=== PATIENT | female | born 1925 | race Caucasian/White ===

== ENCOUNTER → 2016-05-26 | Outpatient (CLI) | payer MEDICARE, BC ==
--- NOTE | 2016-05-26 12:17 | CT ---
EXAMINATION TYPE: CT sinus wo con DATE OF EXAM: 05/26/2016 12:04 PM COMPARISON: NONE HISTORY: Patient complains of chronic cough and post nasal drip. CT DLP: [address] of the paranasal sinuses was performed in the axial and coronal planes. Bone and soft tissue settings are submitted. The paranasal sinuses demonstrate normal aeration and development. The paranasal sinuses are free of mucosal thickening or air fluid level. The osteal meatal units are patent bilaterally. Mild nasal septal deviation from left to right. No bony destructive changes are seen within the field of view. IMPRESSION: Mild nasal septal deviation from left to right. Otherwise unremarkable examination.
== END | disposition home or self-care (01) ==
LOC: RADCTMAIN 11:28
PROVIDERS: ATTEND Internal Medicine Critical Care Medicine
DX: J34.2 Deviated nasal septum (principal); R05 Cough
CPT/HCPCS: 70486

== ENCOUNTER 2016-10-27 13:15 | Emergency (ER) | payer MEDICARE, BC ==
--- NOTE | 2016-10-27 13:45 | ED ---
General Adult HPI - General Chief complaint: Head Injury Stated complaint: bumped head x 1 week Time Seen by Provider: 10/27/16 13:22 Source: patient, family, RN notes reviewed Mode of arrival: ambulatory Limitations: no limitations - History of Present Illness Initial comments: Chief complaint and history of present illness this 89-year-old female here with her daughter. The patient reports that she tripped last week falling forward hitting her face against the wooden part of a sofa. At the time she had a short episode of epistaxis. Daughter reports there was no loss of consciousness, no nausea no vomiting, no seizure activity at time. Patient comes in today because of persistent discomfort in the area of her forehead and bridge of the nose. The patient takes aspirin every other day. - Related Data Home Medications Medication Instructions Recorded Confirmed Losartan Potassium [Cozaar] 100 mg PO DAILY 11/28/13 10/27/16 Multivitamin/Iron/Folic Acid 1 tab PO DAILY 11/28/13 10/27/16 [Centrum Complete Multivit Tab] NIFEdipine XL [Procardia XL] 60 mg PO DAILY@1200 11/28/13 10/27/16 cloNIDine HCL [Catapres] 0.2 mg PO TID 11/15/14 10/27/16 Repaglinide [Prandin] 2 mg PO TID 07/14/15 10/27/16 Metoclopramide HCl [Reglan] 5 mg PO HS 04/11/16 10/27/16 Cholecalciferol [Vitamin D3] 1,000 unit PO DAILY 10/27/16 10/27/16 Dicyclomine [Bentyl] 10 mg PO BID PRN 10/27/16 10/27/16 Docusate [Colace] 100 mg PO BID PRN 10/27/16 10/27/16 Glimepiride [Amaryl] 0.5 mg PO BID 10/27/16 10/27/16 L.acidoph,Paracasei, B.lactis 1 cap PO DAILY 10/27/16 10/27/16 [Probiotic] Polyethylene Glycol 3350 [Miralax] 17 gm PO DAILY PRN 10/27/16 10/27/16 Allergies Allergy/AdvReac Type Severity Reaction Status Date / Time Penicillins AdvReac Itching Verified 10/27/16 14:35 Sulfa (Sulfonamide AdvReac Itching Verified 10/27/16 14:35 Antibiotics) Review of Systems ROS Statement: Those systems with pertinent positive or pertinent negative responses have been documented in the HPI. Review of systems mild frontal headache. Ecchymosis over the bridge of the nose and the left maxillary area. Mild neck discomfort which originated with the fall. No chest pain shortness breath GI/ problems no neuro deficits. All systems are reviewed. Past medical problems significant for non-insulin- dependent diabetes mellitus, hypertension, hiatal hernia and diverticulitis. Surgeries include partial bowel resection because of diverticulosis. He also had an appendectomy, cholecystectomy, hernia repair, total hysterectomy, right total knee repair replacement and tonsillectomy. Family history cancers include brain uterine and ovarian. Also strokes brothers and sisters. Father had hypertension mother had heart disease. Patient has ALLERGIES to penicillin and sulfa. Nonsmoker nondrinker. ROS Other: All systems not noted in ROS Statement are negative. Past Medical History Past Medical History: Diabetes Mellitus, Hypertension Additional Past Medical History / Comment(s): hiatal hernia, diverticulitis History of Any Multi-Drug Resistant Organisms: None Reported Past Surgical History: Appendectomy, Bowel Resection, Cholecystectomy, Hernia Repair, Hysterectomy, Joint Replacement, Tonsillectomy Additional Past Surgical History / Comment(s): right knee replacement and rotator cuff repaired rigth shoulder Past Anesthesia/Blood Transfusion Reactions: No Reported Reaction Past Psychological History: No Psychological Hx Reported Smoking Status: Never smoker Past Alcohol Use History: None Reported Past Drug Use History: None Reported - Past Family History Mother Additional Family Medical History / Comment(s): patient stated mom had heart problems but doesn't know what and at 48. Father Family Medical History: CVA/TIA, Hypertension General Exam - General Exam Comments Initial Comments: General: The patient is awake and alert, planes of mild frontal headache and persistent ecchymosis and discomfort to the nose and left maxillary region. Vital signs show temp 98.5 pulse 80 respiratory rate 18 pulse ox 96% room air blood pressure 204/80. The patient was given Catapres 0.1 by mouth. Eye: Pupils are equal, round and reactive to light, extra-ocular movements are intact ; there is normal conjunctiva bilaterally. No signs of icterus. History of cataract removal. Ears, nose, mouth and throat: There are moist mucous membranes and no oral lesions. Ecchymosis over the bridge of the nose. Ecchymosis over the left maxillary area. Septum appears to be within normal limits slight falling to the right but no hematoma noted on the septum. Neck: The neck is supple, mild discomfort with flexion and extension. No numbness no tingling to the extremities Cardiovascular: There is a regular rate and rhythm. No murmur, rub or gallop is appreciated. Respiratory: Lungs are clear to auscultation, respirations are non-labored, breath sounds are equal. No wheezes, stridor, rales, or rhonchi. Gastrointestinal: Soft, non-distended, non-tender abdomen without masses or organomegaly noted. There is no rebound or guarding present. No CVA tenderness. Bowel sounds are unremarkable. Back: No complaint of back pain. Musculoskeletal: Normal ROM, no tenderness, There is no pedal edema. There is no calf tenderness or swelling. Sensation intact. Total right knee replacement. Currently no pain to any extremity. Neurological: CN II-XII intact, There are no obvious motor or sensory deficits. Coordination appears grossly intact. Speech is normal. No focal or lateralizing findings Skin: Skin is warm and dry and no rashes or lesions are noted. Ecchymosis over the bridge of the nose and left maxillary sinus Limitations: no limitations Course Vital Signs 10/27/16 10/27/16 10/27/16 13:17 14:15 14:50 Temperature 98.5 F 98.1 F Pulse Rate 80 78 Respiratory 18 16 Rate Blood Pressure 204/80 198/90 184/83 O2 Sat by Pulse 96 99 Oximetry Medical Decision Making - Medical Decision Making Medical decision making; CT of the brain and cervical spine were done and reviewed by radiologist his impression is ;very minimal chronic appearing white matter ischemic changes of the brain. Cervical spine report #1 uncovertebral joint hypertrophy. Contributing to moderate foraminal narrowing at C5-C6. Degenerative disc changes. No acute osseous abnormality as read by Dr. Ramírez. Facial bones were done and reviewed by radiologist his final impression is; no acute facial fracture. Minimal mucoperiosteal thickening involving the right maxillary sinus. As read by Dr. Kay Her logically alert. Patient be discharged to care of family. Told to follow- up with family physician or emergency room as needed also advised to use Tylenol or ibuprofen for pain Disposition Clinical Impression: Contusion of scalp, Concussion without loss of consciousness Disposition: HOME SELF-CARE Condition: Fair Instructions: Concussion (ED), Post Concussion Syndrome (ED) Additional Instructions: Use Tylenol or ibuprofen for pain. Follow-up with family physician. Referrals: Geovany Stafford MD [Primary Care Provider] - 1-2 days Time of Disposition: 15:02
[2016-10-27] MEDS: cloNIDine HCL 0.1 MG TAB PO STA ×2 (14:13→15:26)
--- NOTE | 2016-10-27 14:25 | CT ---
EXAMINATION TYPE: CT brain lizzie bruce DATE OF EXAM: 10/27/2016 COMPARISON: NONE HISTORY: Fall one week ago, bruising to Lt eye CT DLP: 1590.15 mGycm, Automated exposure control for dose reduction was used. CONTRAST: None CT of the brain is performed utilizing 3 mm thick sections through the posterior fossa and 3 mm thick sections through the remaining calvarium. Study is performed within 24 hours of arrival to the hospital. No abnormal hyperdensity is present to suggest an acute intracranial hemorrhage. No mass lesion is evident. No acute infarcts are evident. Very minimal periventricular white matter hypodensity is present, lik xi on the basis of chronic white matter ischemic changes. Ventricles and sulci are appropriate for the patient age. Paranasal sinuses and mastoid air cells within the [id number] are clear. IMPRESSIONS: 1. Very minimal chronic appearing white matter ischemic changes. CT cervical spine. COMPARISON: None CT of the cervical spine is performed in the axial plane at 2 mm thick sections. Reconstructed image s in the coronal, and sagittal plane are reviewed on the computer. No acute fractures are evident. There is loss of disc height C4-5, C5-6. There is slight kyphosis at C4-5. Vertebral body heights are preserved. No spinal canal stenosis is evident. Facet hypertrophy is present. Some uncovertebral joint hypertrophy is present C5-6 with moderate bila teral foraminal narrowing. IMPRESSIONS: 1. Uncovertebral joint hypertrophy contributing to moderate foraminal narrowing C5-6. 2. Degenerative disc changes. 3. No acute osseous abnormality.
--- NOTE | 2016-10-27 14:29 | CT ---
EXAMINATION TYPE: CT facial bones wo con DATE OF EXAM: 10/27/2016 COMPARISON: Previous CT scan of the sinuses dated 05/26/2016. HISTORY: Fall one week ago, bruising to Lt eye CT DLP: 449.23 mGycm Automated exposure control for dose reduction was used. TECHNIQUE: CT scan of the sinuses is performed without contrast, axial images are obtained, coronal r eformatted images are also reviewed. FINDINGS: There is air underneath both upper limits. Globes are normal. No significant soft tissue sw elling is seen. The zygomatic arches are intact. The pterygoid plates are intact. The orbital mills in the mills of t he maxillary sinuses are intact. Limited views of the mandible are unremarkable. There is mild mucoperiosteal thickening involving the right maxillary sinus. The paranasal sinuses an d mastoids are otherwise clear. IMPRESSION: 1. NO ACUTE FACIAL FRACTURE. 2. MINIMAL MUCOPERIOSTEAL THICKENING INVOLVING THE RIGHT MAXILLARY SINUS.
[2016-10-27] MEDS ORDERED: cloNIDine HCL 0.2 MG TAB PO STA (15:16)
[2016-10-27 15:20] VITALS: PULSE 69; RESP 18; TEMP 97.5
[2016-10-27] MEDS ORDERED: cloNIDine HCL 0.1 MG TAB PO STA (15:28)
[2016-10-27 16:05] VITALS: BP 187/83
== END 2016-10-27 16:06 | disposition home or self-care (01) ==
LOC: EC 13:15
DX: S06.0X0A Concussion without loss of consciousness, initial encounter (principal); S00.03XA Contusion of scalp, initial encounter; S00.33XA Contusion of nose, initial encounter; M99.71 Connective tissue and disc stenosis of intervertebral foramina of cervical region; M47.812 Spondylosis without myelopathy or radiculopathy, cervical region; J34.89 Other specified disorders of nose and nasal sinuses; I10 Essential (primary) hypertension; E11.9 Type 2 diabetes mellitus without complications; Z79.84 Long term (current) use of oral hypoglycemic drugs; Z79.899 Other long term (current) drug therapy; Z88.0 Allergy status to penicillin; Z88.2 Allergy status to sulfonamides; W01.190A Fall on same level from slipping, tripping and stumbling with subsequent striking against furniture, initial encounter; Z87.19 Personal history of other diseases of the digestive system; R90.82 White matter disease, unspecified
CPT/HCPCS: 70450; 70486; 72125; 99283

== ENCOUNTER → 2016-11-23 | Outpatient (CLI) | payer MEDICARE, BC ==
--- NOTE | 2016-11-23 10:04 | XR ---
EXAMINATION TYPE: XR chest 2V DATE OF EXAM: 11/23/2016 COMPARISON: Chest x-ray December 09, 2009 HISTORY: Cough for a few weeks per patient. TECHNIQUE: Frontal and lateral views of the chest are obtained. FINDINGS: Chronic emphysematous change is redemonstrated. There is no focal air space opacity, pleura l effusion, or pneumothorax seen. The cardiac silhouette size is mildly enlarged with atheroscleroti c thoracic aorta. The osseous structures are demineralized. Multilevel bridging osteophytes are see n in the spine. IMPRESSION: Chronic emphysematous change and mild cardiomegaly without acute pulmonary process.
== END | disposition home or self-care (01) ==
LOC: RADXRMAIN 09:36
PROVIDERS: ATTEND Internal Medicine Geriatric Medicine
DX: J43.9 Emphysema, unspecified (principal); I51.7 Cardiomegaly
CPT/HCPCS: 71020